=== PATIENT | male | born 1995 | race Caucasian/White ===

== ENCOUNTER 2018-07-13 22:46 | Emergency (ER) | payer SELFPAY ==
[~2018-07-13] VITALS: Ht 182.9 cm; Wt 122.5 kg
--- NOTE | 2018-07-13 22:48 | ED.ADGEN ---
Past History Past Medical History: Asthma Past Surgical History: No Surgical History Alcohol Use: None Drug Use: None Adult General Chief Complaint Chief Complaint ".. I was reaching up.. 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 and it popped...and now it really hurts.. 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 " HPI HPI Patient is a 22 year old male who presents with above hx and complaints injury to right wrist. Distal neurovascular is intact. Patient is right-hand dominant. Movement of wrist with flexion and extension exhibited pain. Patient is normally healthy. No history immunosuppression. No history of bone or cartilage disorder. Review of Systems Review of Systems Constitutional: Denies fever or chills [] Eyes: Denies change in visual acuity, redness, or eye pain [] HENT: Denies nasal congestion or sore throat [] Respiratory: Denies cough or shortness of breath [] Cardiovascular: No additional information not addressed in HPI [] GI: Denies abdominal pain, nausea, vomiting, bloody stools or diarrhea [] : Denies dysuria or hematuria [] Musculoskeletal: Denies back pain or joint pain []complains of right wrist pain Integument: Denies rash or skin lesions [] Neurologic: Denies headache, focal weakness or sensory changes [] Endocrine: Denies polyuria or polydipsia [] All other systems were reviewed and found to be within normal limits, except as documented in this note. Family History Family History Noncontributory Current Medications Current Medications Current Medications Medications (Trade) Dose Ordered Sig/[facility] Start Time Stop Time Status Last Admin Dose Admin Hydrocodone Bitartrate/ Ibuprofen (Vicoprofen 7.5-200) 2 tab 1X ONCE 07/13/18 23:30 07/13/18 23:31 DC 07/13/18 23:06 2 TAB Allergies Allergies Allergies Coded Allergies Type Severity Reaction Last Updated Verified Penicillins Allergy Unknown 05/11/15 Yes amoxicillin Allergy Unknown 05/11/15 Yes Physical Exam Physical Exam Constitutional: Well developed, well nourished, moderatee distress, non-toxic appearance. [] HENT: Normocephalic, atraumatic, bilateral external ears normal, oropharynx moist, no oral exudates, nose normal. [] Eyes: PERRLA, EOMI, conjunctiva normal, no discharge. [] Neck: Normal range of motion, no tenderness, supple, no stridor. [] Cardiovascular:Heart rate regular rhythm, no murmur [] Lungs & Thorax: Bilateral breath sounds clear to auscultation [] Abdomen: Bowel sounds normal, soft, no tenderness, no masses, no pulsatile masses. [] Skin: Warm, dry, no erythema, no rash. [] Back: No tenderness, no CVA tenderness. [] Extremities: No tenderness, no cyanosis, no clubbing, ROM intact, no edema. [] except findings in right wrist Neurologic: Alert and oriented X 3, normal motor function, normal sensory function, no focal deficits noted. [] Psychologic: Affect normal, judgement normal, mood normal. [] Current Patient Data Vital Signs Vital Signs Date Time Temp Pulse Resp B/P (MAP) Pulse Ox O2 Delivery O2 Flow Rate FiO2 07/13/18 22:56 98.4 81 18 96 Room Air EKG EKG [] Radiology/Procedures Radiology/Procedures My interpretation x-ray shows questionable lying across to the lunate. Suspect possible fracture versus venous line.[] Course & Med Decision Making Course & Med Decision Making Pertinent Labs and Imaging studies reviewed. (See chart for details). wear splint. Follow-up primary care. repeat x-ray inin 2 weeks. Tylenol and ibuprofen for pain. Monitor for circulation. Follow-up with orthro., Ice, elevation, rest. Distal neurovascular intact post splinting. - Thumb spica. [] Final Impression Final Impression 1. Rt. Wrist sprain[] 2. Possible wrist fracture-lunate- nondisplaced Dragon Disclaimer Angelo Disclaimer This electronic medical record was generated, in whole or in part, using a voice recognition dictation system. Discharge Summary Visit Information Final Diagnosis Problems Medical Problems: (1) Wrist fracture Status: Acute (2) Wrist sprain Status: Acute Brief Hospital Course Allergies Allergies Coded Allergies Type Severity Reaction Last Updated Verified Penicillins Allergy Unknown 05/11/15 Yes amoxicillin Allergy Unknown 05/11/15 Yes Vital Signs Vital Signs Date Time Temp Pulse Resp B/P (MAP) Pulse Ox O2 Delivery O2 Flow Rate FiO2 07/13/18 22:56 98.4 81 18 96 Room Air Brief Hospital Course Mr. Radford is a 22 old male who presented with Rt wrist sprain and possible lunate fx. Discharge Information Condition at Discharge: Stable Disposition/Orders: D/C to Home Dischare Medications Current Medications Hydrocodone Bitartrate/ Ibuprofen (Vicoprofen 7.5-200) 2 tab 1X ONCE PO Last administered on 07/13/18at 23:06; Admin Dose 2 TAB; Start 07/13/18 at 23:30; Stop 07/13/18 at 23:31; Status DC Dragon Disclaimer This chart was dictated in whole or in part using Voice Recognition software in a busy, high-work load, and often noisy Emergency Department environment. It may contain unintended and wholly unrecognized errors or omissions. CHANTAL NAGY MD Jul 13, 2018 22:48
[2018-07-13 22:56] VITALS: BP 131/67
[2018-07-13] MEDS ORDERED: HYDROcodon/IBUPROFEN 7.5/200MG 1 TAB TABLET PO ONE (23:30)
--- NOTE | 2018-07-14 08:13 | RAD ---
Right wrist radiograph 07/13/2018 10:58 PM INDICATION: Wrist injury with medial and lateral pain. COMPARISON: None available. TECHNIQUE: 4 views the right wrist are provided. FINDINGS: There is no acute fracture or dislocation. Bone mineralization is within normal limits. Joint spaces are maintained. Regional soft tissues are within normal limits. There is no soft tissue gas or osseous erosion. IMPRESSION: No acute fracture or dislocation. Electronically signed by: Margoth Riggins MD (07/14/2018 8:10 AM) [id number]
== END 2018-07-14 00:20 | disposition home or self-care (01) ==
LOC: ER 22:46
DX: S63.501A Unspecified sprain of right wrist, initial encounter (principal); J45.909 Unspecified asthma, uncomplicated; Z88.0 Allergy status to penicillin; Z88.1 Allergy status to other antibiotic agents; X50.9XXA Other and unspecified overexertion or strenuous movements or postures, initial encounter; Y93.89 Activity, other specified; Y92.89 Other specified places as the place of occurrence of the external cause; Y99.8 Other external cause status
CPT/HCPCS: 29125; 73110; 99283

== ENCOUNTER 2018-11-26 23:11 | Emergency (ER) | payer BC ==
[~2018-11-26] VITALS: Ht 182.9 cm; Wt 108.9 kg
[2018-11-26 23:27] VITALS: BP 121/67
--- NOTE | 2018-11-26 23:59 | PHYS DOC ---
Past History Past Medical History: Asthma Past Surgical History: Other Alcohol Use: Occasionally Drug Use: None Adult General Chief Complaint Chief Complaint: FINGER INJURY HPI HPI 23-year-old male presents with fishing lower stuck in his hand. The patient was putting his bowling equipment away in his trunk when his hand caught the hook of a fishing lure. He was unable to get it out himself so he came to the ED. He is unsure when his last tetanus shot was. He denies any other injuries or complaints. No fever or chills. Review of Systems Review of Systems Constitutional: Denies fever or chills [] Eyes: Denies change in visual acuity, redness, or eye pain [] HENT: Denies nasal congestion or sore throat [] Respiratory: Denies cough or shortness of breath [] Cardiovascular: No additional information not addressed in HPI [] GI: Denies abdominal pain, nausea, vomiting, bloody stools or diarrhea [] : Denies dysuria or hematuria [] Musculoskeletal: Denies back pain or joint pain [] Integument: Fishing lower stuck in left hand[] Neurologic: Denies headache, focal weakness or sensory changes [] Endocrine: Denies polyuria or polydipsia [] All other systems were reviewed and found to be within normal limits, except as documented in this note. Allergies Allergies Allergies Coded Allergies Type Severity Reaction Last Updated Verified Penicillins Allergy Unknown 05/11/15 Yes amoxicillin Allergy Unknown 05/11/15 Yes Physical Exam Physical Exam Constitutional: Well developed, well nourished, no acute distress, non-toxic appearance. [] HENT: Normocephalic, atraumatic, bilateral external ears normal, oropharynx moist, no oral exudates, nose normal. [] Eyes: PERRLA, EOMI, conjunctiva normal, no discharge. [] Neck: Normal range of motion, no tenderness, supple, no stridor. [] Cardiovascular:Heart rate regular rhythm, no murmur [] Lungs & Thorax: Bilateral breath sounds clear to auscultation [] Abdomen: Bowel sounds normal, soft, no tenderness, no masses, no pulsatile zulma s. [] Skin: Single fishhook are try hook lure in the base of the left hand second digit.[] Back: No tenderness, no CVA tenderness. [] Extremities: No tenderness, no cyanosis, no clubbing, ROM intact, no edema. [] Neurologic: Alert and oriented X 3, normal motor function, normal sensory function, no focal deficits noted. [] Psychologic: Affect normal, judgement normal, mood normal. [] Current Patient Data Vital Signs Vital Signs Date Time Temp Pulse Resp B/P (MAP) Pulse Ox O2 Delivery O2 Flow Rate FiO2 11/26/18 23:27 97.9 71 18 98 Room Air EKG EKG [] Radiology/Procedures Radiology/Procedures [] Course & Med Decision Making Course & Med Decision Making Pertinent Labs and Imaging studies reviewed. (See chart for details) I was able to anesthetize the area with 1% lidocaine without epinephrine. It was then able to make a small cut with a #11 scalpel to allow for the Jocelyn be removed from his hand. There was minimal bleeding. Given this is a puncture wound, I will cover the patient with Keflex for a week. With the first dose in the ED. His amoxicillin allergy is a rash. He is stable for discharge at this time. [] Dragon Disclaimer Dragon Disclaimer This electronic medical record was generated, in whole or in part, using a voice recognition dictation system. Departure Departure: Impression: Primary Impression: Foreign body of left hand Disposition: 01 HOME, SELF-CARE Condition: IMPROVED Referrals: PCPMARTIN (PCP) Patient Instructions: Puncture Wound, [id number] Problem Qualifiers Primary Impression: Foreign body of left hand Encounter type: initial encounter Qualified Codes: S60.552A - Superficial foreign body of left hand, initial encounter FÉLIX OSWALD DO Nov 26, 2018 23:59
[2018-11-27] MEDS ORDERED: CEPH-264 PO
[2018-11-27] MEDS ORDERED: DIPHTH,PERTUSS(ACELL),TET TOX 0.5 ML DISP.SYRIN. VAX IM ONE
[2018-11-27] MEDS ORDERED: CEPHALEXIN 250 MG CAPSULE PO ONE
== END 2018-11-27 | disposition home or self-care (01) ==
LOC: ER 23:11
DX: S60.552A Superficial foreign body of left hand, initial encounter (principal); J45.909 Unspecified asthma, uncomplicated; Z88.0 Allergy status to penicillin; Z88.1 Allergy status to other antibiotic agents; W45.8XXA Other foreign body or object entering through skin, initial encounter; Y93.89 Activity, other specified; Y92.89 Other specified places as the place of occurrence of the external cause; Y99.8 Other external cause status
CPT/HCPCS: 10120; 90471; 90715; 99284-25

== ENCOUNTER 2020-02-01 13:12 | Emergency (ER) | payer SELFPAY ==
[~2020-02-01] VITALS: Ht 182.9 cm; Wt 122.0 kg
[~2020-02-01 13:12] MED LIST: CEPH-264 PO
[2020-02-01 13:46] VITALS: BP 125/78
--- NOTE | 2020-02-01 15:09 | PHYS DOC ---
Past History Past Medical History: Asthma Past Surgical History: Other Additional Past Surgical Histo: ORIF right arm Alcohol Use: Occasionally Drug Use: None Adult General Chief Complaint Chief Complaint: ABDOMINAL PAIN HPI HPI Patient is a 24-year-old male patient presenting to the ED today requesting a note for work, patient missed work because he had diarrhea for 3 days. He is currently symptom-free. Review of Systems Review of Systems Constitutional: Denies fever or chills [] Eyes: Denies change in visual acuity, redness, or eye pain [] HENT: Denies nasal congestion or sore throat [] Respiratory: Denies cough or shortness of breath [] Cardiovascular: No additional information not addressed in HPI [] GI: Reports diarrhea for 3 days that has subsided. Denies abdominal pain, nausea, vomiting, bloody stools : Denies dysuria or hematuria [] Musculoskeletal: Denies back pain or joint pain [] Integument: Denies rash or skin lesions [] Neurologic: Denies headache, focal weakness or sensory changes [] Endocrine: Denies polyuria or polydipsia [] All other systems were reviewed and found to be within normal limits, except as documented in this note. Allergies Allergies Allergies Coded Allergies Type Severity Reaction Last Updated Verified Penicillins Allergy Unknown Hives 02/01/20 Yes amoxicillin Allergy Unknown Hives 02/01/20 Yes Physical Exam Physical Exam Constitutional: Well developed, well nourished, no acute distress, non-toxic appearance. [] HENT: Normocephalic, atraumatic, bilateral external ears normal, oropharynx moist, no oral exudates, nose normal. [] Eyes: PERRLA, EOMI, conjunctiva normal, no discharge. [] Neck: Normal range of motion, no tenderness, supple, no stridor. [] Cardiovascular:Heart rate regular rhythm, no murmur [] Lungs & Thorax: Bilateral breath sounds clear to auscultation [] Abdomen: Bowel sounds normal, soft, no tenderness, no masses, no pulsatile masses. [] Skin: Warm, dry, no erythema, no rash. [] Back: No tenderness, no CVA tenderness. [] Extremities: No tenderness, no cyanosis, no clubbing, ROM intact, no edema. [] Neurologic: Alert and oriented X 3, normal motor function, normal sensory function, no focal deficits noted. [] Psychologic: Affect normal, judgement normal, mood normal. [] Current Patient Data Vital Signs Vital Signs Date Time Temp Pulse Resp B/P (MAP) Pulse Ox O2 Delivery O2 Flow Rate FiO2 02/01/20 13:46 99.3 79 18 125/78 (94) 98 Room Air EKG EKG [] Radiology/Procedures Radiology/Procedures [] Heart Score Risk Factors: Risk Factors: DM, Current or recent (<one month) smoker, HTN, HLP, family history of CAD, obesity. Risk Scores: Risk Factors: DM, Current or recent (<one month) smoker, HTN, HLP, family history of CAD, obesity. Course & Med Decision Making Course & Med Decision Making Pertinent Labs and Imaging studies reviewed. (See chart for details) This is a 24-year-old male patient presenting to the ED today for a work note for diarrhea for 3 days that has subsided. Work note provided. Discharge to home. Dragon Disclaimer Dragon Disclaimer This electronic medical record was generated, in whole or in part, using a voice recognition dictation system. Departure Departure: Impression: Primary Impression: Diarrhea Disposition: 01 DC HOME SELF CARE/HOMELESS Condition: STABLE Referrals: PCP,NO (PCP) follow up asneeded. Patient Instructions: Diarrhea Additional Instructions: You can return to work. Push fluids. Maintain good hand hygiene. Problem Qualifiers Primary Impression: Diarrhea Diarrhea type: unspecified type Qualified Codes: R19.7 - Diarrhea, unspecified LISA SALINAS [employer] PROJECT MANAGER Feb 01, 2020 15:08
== END 2020-02-01 15:20 | disposition home or self-care (01) ==
LOC: ER 13:12
DX: R19.7 Diarrhea, unspecified (principal); J45.909 Unspecified asthma, uncomplicated; Z98.890 Other specified postprocedural states; Z88.0 Allergy status to penicillin; Z88.1 Allergy status to other antibiotic agents
CPT/HCPCS: 99281